=== PATIENT | male | born 1995 | race Caucasian/White ===

== ENCOUNTER 2016-09-24 09:04 | Emergency (ER) | payer OTHER ==
[~2016-09-24] VITALS: Ht 188 cm; Wt 54.7 kg
[2016-09-24 09:08] VITALS: BP 129/82
--- NOTE | 2016-09-24 09:13 | NUR ---
PT AMBULATED TO BED 5
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
--- NOTE | 2016-09-24 09:26 | NUR ---
ER MD DR NEIL EVALUATING PT AT BEDSIDE.
--- NOTE | 2016-09-24 09:34 | NUR ---
PT STS PAIN ON & OFF 05/06 AT THIS TIME. Addendum: 09/24/16 at 0935 by [email or web address] Patient appears to be resting comfortably in bed.BP 131/77; PT DENIES HEADACHE OR DIZZINESS AT THIS TIME, AWARE. Respirations even and unlabored.WILL CONTINUE TO MONITOR
[2016-09-24] MEDS ORDERED: DICYCLOMINE HCL LIQUID 10 MG/5 ML UDC PO ONE (09:55)
[2016-09-24] MEDS ORDERED: LIDOCAINE VISCOUS 2% 20 ML UDC PO ONE (09:55)
[2016-09-24] MEDS ORDERED: ALUMINUM HYD/MAG/SIMETHICONE 30 ML UDC PO ONE (09:55)
--- NOTE | 2016-09-24 10:02 | NUR ---
GAVE MED ORDER.
--- NOTE | 2016-09-24 10:11 | NUR ---
ER MD DR NEIL REEVALUATING PT AT BEDSIDE.
[2016-09-24 10:21] VITALS: BP 119/76
--- NOTE | 2016-09-24 10:22 | NUR ---
Patient discharged with v/s stable. Written and verbal after care instructions given and explained. Patient alert, oriented and verbalized understanding of instructions. Ambulatory with steady gait. All questions addressed prior to discharge. ID band removed. Patient advised to follow up with PMD. Rx of OMEPRAZOLE given. Patient educated on indication of medication including possible reaction and side effects. Opportunity to ask questions provided and answered.
== END 2016-09-24 10:22 | disposition home or self-care (01) ==
LOC: MED 09:04
DX: K29.70 Gastritis, unspecified, without bleeding (principal)
CPT/HCPCS: 99283

== ENCOUNTER 2019-04-11 13:38 | Emergency (ER) | payer OTHER ==
[~2019-04-11] VITALS: Ht 188 cm; Wt 69.4 kg
[2019-04-11 13:41] VITALS: BP 151/84
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
[2019-04-11] MEDS ORDERED: HYDROcodone/APAP 5/325 MG 1 TAB TAB PO ONE (14:15)
--- NOTE | 2019-04-11 14:30 | NUR ---
pt left to ct
--- NOTE | 2019-04-11 15:28 | NUR ---
PT STATES NORCO HAS BROUGHT PAIN LEVEL DOWN 4/10. PT RESTING COMFORTABLY.
[2019-04-11 16:24] VITALS: BP 151/84
--- NOTE | 2019-04-11 16:26 | NUR ---
Patient discharged with v/s stable. Written and verbal after care instructions given and explained. Patient alert, oriented and verbalized understanding of instructions. Ambulatory with steady gait. All questions addressed prior to discharge. ID band removed. Patient advised to follow up with PMD. Rx of IBUPROFEN, AUGMENTING, NORCO given. Patient educated on indication of medication including possible reaction and side effects. Opportunity to ask questions provided and answered.
== END 2019-04-11 16:26 | disposition home or self-care (01) ==
LOC: MED 13:38
DX: S02.31XA Fracture of orbital floor, right side, initial encounter for closed fracture (principal); S02.2XXA Fracture of nasal bones, initial encounter for closed fracture; S02.401A Maxillary fracture, unspecified side, initial encounter for closed fracture; S06.0X1A Concussion with loss of consciousness of 30 minutes or less, initial encounter; M79.10 Myalgia, unspecified site; V89.2XXA Person injured in unspecified motor-vehicle accident, traffic, initial encounter; Y93.89 Activity, other specified; Y92.89 Other specified places as the place of occurrence of the external cause; Y99.8 Other external cause status
CPT/HCPCS: 70450; 70486; 72125; 90471; 90715; 99285